=== PATIENT | male | born 1975 ===

== ENCOUNTER 2018-04-15 17:48 | Emergency (ER) | payer SELFPAY ==
[~2018-04-15 17:48] MED LIST: Lactated Ringers 1,000 ML IV ONE
[2018-04-15] MEDS ORDERED: fentaNYL 100 MCG/2 ML SDV ONE (17:53)
[2018-04-15] MEDS ORDERED: Rocuronium 50 MG/5 ML Vial ONE (17:59)
[2018-04-15] MEDS ORDERED: Diphtheria,Pertussis(Acell),Tetanus Vaccine 0.5 ML Syringe IM ONE (17:59)
[2018-04-15] MEDS ORDERED: Famotidine 20 MG/2 ML SDV IVPUSH ONE (17:59)
[2018-04-15] MEDS ORDERED: Succinylcholine 200 MG/10 ML MDV ONE (17:59)
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
[2018-04-15] MEDS ORDERED: Sodium Chloride 0.9% 1,000 ML IV ONE (18:00)
[2018-04-15] MEDS ORDERED: Propofol 200 MG/20 ML SDV ONE (18:02)
[2018-04-15] MEDS ORDERED: Lactated Ringers 1,000 ML IV ONE (18:18)
[2018-04-15 18:27] LABS: CHLORIDE,CL 105 mmol/L (98-107); SODIUM,NA 140 mmol/L (136-148)
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
[2018-04-18] MEDS ORDERED: Rocuronium 50 MG/5 ML Vial IVPUSH ONE (09:06)
[2018-04-18] MEDS ORDERED: fentaNYL 250 MCG/5 ML SDV IVPUSH ONE ×2 (09:07→09:08)
[2018-04-18] MEDS ORDERED: Midazolam 1 MG/ML 2 ML SDV IVPUSH ONE (09:07)
[2018-04-18] MEDS ORDERED: Famotidine 20 MG/2 ML SDV IVPUSH ONE (09:08)
== END 2018-04-15 18:39 ==
LOC: MW.ED 17:48
DX: T21.31XA Burn of third degree of chest wall, initial encounter (principal); T20.37XA Burn of third degree of neck, initial encounter; T21.32XA Burn of third degree of abdominal wall, initial encounter; T22.312A Burn of third degree of left forearm, initial encounter; T31.21 Burns involving 20-29% of body surface with 10-19% third degree burns; R41.82 Altered mental status, unspecified; M54.9 Dorsalgia, unspecified; Z23 Encounter for immunization; W40.0XXA Explosion of blasting material, initial encounter
CPT/HCPCS: 31500; 36415; 51702; 71045; 72170; 80053; 80305; 81001; 82550; 82553; 84484; 85025; 85610; 86850; 86900; 86901; 90471; 90715; 96360; 96361; 96374; 99291; G0390; J0330; J3490; J7120; 99285